=== PATIENT | female | born 1965 | race Caucasian/White ===

== ENCOUNTER 2019-06-01 13:47 | Emergency (ER) | payer SELFPAY ==
[2019-06-01 14:16] VITALS: BP 134/67
--- NOTE | 2019-06-01 15:39 | ER Document Report ---
ED Medical Screen (RME) - General Chief Complaint: Ear Pain Stated Complaint: EAR SWELLING Time Seen by Provider: 06/01/19 15:24 Mode of Arrival: Ambulatory Information source: Patient Notes: Patient was placed on topical drops and oral medication for left otitis externa yesterday. Patient was advised that if she had facial swelling or if her ear started to project outward that she should come for further evaluation. Patient denies any history of diabetes. Patient denies any fever. I have greeted and performed a rapid initial assessment of this patient. A comprehensive ED assessment and evaluation of the patient, analysis of test results and completion of the medical decision making process will be conducted by additional ED providers. - Related Data Allergies/Adverse Reactions: aspirin Allergy (Verified 06/01/19 13:48) codeine Allergy (Verified 06/01/19 13:48) Past Medical History - Social History Frequency of alcohol use: None Drug Abuse: None Physical Exam - Vital signs Vitals: Temp Pulse Resp BP Pulse Ox 98.7 F 62 18 134/67 H 96 06/01/19 14:14 06/01/19 14:14 06/01/19 14:14 06/01/19 14:14 06/01/19 14:14 - General Notes: Left ear swelling, erythema, external auditory canal swollen left TM unable to be visualized. Ear is mildly projecting outward on the left side Course - Vital Signs Vital signs: Temp Pulse Resp BP Pulse Ox 98.7 F 62 18 134/67 H 96 06/01/19 14:14 06/01/19 14:14 06/01/19 14:14 06/01/19 14:14 06/01/19 14:14
[2019-06-01 16:28] LABS: ABSOLUTE EOSINOPHILS # (AUTO) 0.1 10^3/uL (0.0-0.6); ABSOLUTE LYMPHOCYTES (AUTO) 2.6 10^3/uL (0.5-4.7); ABSOLUTE MONOCYTES (AUTO) 1.1 10^3/uL (0.1-1.4); ABSOLUTE NEUT (AUTO) 7.5 10^3/uL (1.7-8.2); BASOPHILS % (AUTO) 0.4 % (0-2); EOSINOPHILS % (AUTO) 0.7 % (0-6); HEMATOCRIT 41.7 % (36.0-47.0); HEMOGLOBIN 14.1 g/dL (12.0-15.5); LYMPHOCYTES % (AUTO) 22.9 % (13-45); MEAN CORPUSCULAR HEMOGLOBIN 30.4 pg (27.0-33.4); MEAN CORPUSCULAR HGB CONC 33.8 g/dL (32.0-36.0); MEAN CORPUSCULAR VOLUME 90 fl (80-97); PLATELET COUNT 317 10^3/uL (150-450); RED BLOOD COUNT 4.64 10^6/uL (3.72-5.28); RED CELL DISTRIBUTION WIDTH 12.9 % (11.5-14.0); TOTAL CELLS COUNTED % (AUTO) 100 %; WHITE BLOOD COUNT 11.3 10^3/uL (4.0-10.5)
--- NOTE | 2019-06-01 16:35 | RADIOLOGY REPORT (SQ) ---
EXAM DESCRIPTION: CT TEMPORAL BONES WO COMPLETED DATE/TIME: 06/01/2019 4:04 pm REASON FOR STUDY: L ear pain/facial swelling, eval malig otitis ext COMPARISON: None. EXAM PARAMETERS: TECHNIQUE: Noncontrasted thin section axial images through the temporal bones and s kull base were obtained and reviewed at bone windows and bone algorithm with coronal and sagittal rec onstructions. All CT scanners at this facility use dose modulation, iterative reconstruction, and/or weight based d osing when appropriate to reduce radiation dose to as low as reasonably achievable (ALARA). [facility]: Dose Right [facility]: [employer] [facility]: Dose Right [facility]: Teradose 4D [facility]: Smart [email or web address] RADIATION DOSE: CT Rad equipment meets quality standard of care and radiation dose reduction techniqu es were employed. CTDIvol: 60.6 mGy. DLP: 606 mGy-cm. mGy. LIMITATIONS: None. FINDINGS: RIGHT SIDE: EXTERNAL AUDITORY CANAL: Widely patent. TYMPANIC MEMBRANE: No masses, thickening or medial retraction. OSSICLES AND MIDDLE EAR CAVITY: Normal ossicles. No middle ear masses or fluid. INNER EAR STRUCTURES: Normal vestibule and cochlea. Normal aqueducts. INTERNAL AUDITORY CANAL: Normal bony canal without narrowing or widening. No calcified or ossified m asses. TEMPOROMANDIBULAR JOINT: Normal. MASTOID AIR CELLS: Clear. LEFT SIDE: EXTERNAL AUDITORY CANAL: The external auditory canal is occluded by soft tissue density. TYMPANIC MEMBRANE: The soft tissue density in the external auditory canal extends to the tympanic mem brane. OSSICLES AND MIDDLE EAR CAVITY: Normal ossicles. No middle ear masses or fluid. INNER EAR STRUCTURES: Normal vestibule and cochlea. Normal aqueducts. INTERNAL AUDITORY CANAL: Normal bony canal without narrowing or widening. No calcified or ossified m asses. TEMPOROMANDIBULAR JOINT: Normal. MASTOID AIR CELLS: Clear. CENTRAL SKULL BASE: Normal foramina. No lytic or blastic lesions. INFERIOR BRAIN: Limited view. No acute findings. LIMITED VIEW OF PARANASAL SINUSES IN THE FIELD OF VIEW: Normal. IMPRESSION: There is complete soft tissue opacification of the external auditory canal to the tympan ic membrane. TECHNICAL DOCUMENTATION: JOB ID: [id number] [facility] [id number]: Final reports with documentation of one or more dose reduction techniques (e.g., Automate d exposure control, adjustment of the mA and/or kV according to patient size, use of iterative recons truction technique) 2010 [employer])- All Rights Reserved Reading location - IP/workstation name: [email or web address]
[2019-06-01 16:39] LABS: ANION GAP 9 (5-19); BLOOD UREA NITROGEN 12 mg/dL (7-20); CALCIUM 9.6 mg/dL (8.4-10.2); CARBON DIOXIDE 27 mmol/L (22-30); CHLORIDE 103 mmol/L (98-107); GLUCOSE 88 mg/dL (75-110); POTASSIUM 4.6 mmol/L (3.6-5.0)
[2019-06-01] MEDS ORDERED: CIPROFLOXACIN 400 MG/D5W RTU 400 MG/200 ML RTUPB IV ONE (17:09)
[2019-06-01] MEDS ORDERED: CIPROFLOXACIN HCL/DEXAMETH OTIC DROP 7.5 ML AS ONE (17:10)
--- NOTE | 2019-06-01 17:27 | ER Document Report ---
ED ENT - General Chief Complaint: Ear Pain Stated Complaint: EAR SWELLING Time Seen by Provider: 06/01/19 15:24 Mode of Arrival: Ambulatory Notes: 54-year-old female presents the emergency department with chief complaint of a worsening left otitis externa diagnosed yesterday at urgent care. Patient states that she was instructed that if her ear starts to swell or pushed forward that she needs to come to the emergency department. Patient was prescribed eardrops and oral antibiotics and has been on Otovel eardrops for 36 hours. Patient denies any fevers or chills but feels a pressure in her left ear. Patient is concerned because she feels like "there is something in my cheek". Denies any vision changes or eye entrapment, denies any dizziness or lightheadedness, denies any neck stiffness, denies any mastoid tenderness. - Related Data Allergies/Adverse Reactions: aspirin Allergy (Verified 06/01/19 13:48) codeine Allergy (Verified 06/01/19 13:48) Past Medical History - General Information source: Patient - Social History Smoking Status: Unknown if Ever Smoked Frequency of alcohol use: None Drug Abuse: None Family History: None Patient has suicidal ideation: No Patient has homicidal ideation: No Review of Systems - Review of Systems Constitutional: See HPI EENT: See HPI Cardiovascular: No symptoms reported Respiratory: No symptoms reported Gastrointestinal: No symptoms reported Genitourinary: No symptoms reported Female Genitourinary: No symptoms reported Musculoskeletal: No symptoms reported Skin: See HPI Hematologic/Lymphatic: No symptoms reported Neurological/Psychological: No symptoms reported Physical Exam - Vital signs Vitals: Temp Pulse Resp BP Pulse Ox 98.7 F 62 18 134/67 H 96 06/01/19 14:14 06/01/19 14:14 06/01/19 14:14 06/01/19 14:14 06/01/19 14:14 - Notes Notes: PHYSICAL EXAMINATION: Reviewed vital signs and charting by RN GENERAL: Alert, interacts well. No acute distress. HEAD: Mild swelling over the zygoma of the left side of the face with some mild erythema, atraumatic. EYES: Pupils equal and round. Extraocular movements intact. ENT: Oral mucosa moist, tongue midline. Left external ear canal swollen shut unable to visualize TM NECK: Full range of motion. Trachea midline. LUNGS: Clear to auscultation bilaterally, no wheezes, rales, or rhonchi. No respiratory distress. HEART: Regular rate and rhythm. No murmur ABDOMEN: soft, non-tender. No distention. Bowel sounds present EXTREMITIES: Moves all 4 extremities spontaneously. No edema, No cyanosis. PSYCH: Normal affect, normal mood. SKIN: Warm, dry, normal turgor. No rashes or lesions noted. Course - Re-evaluation Re-evalutation: 06/01/19 17:24 Patient was prescribed Otovel and amoxicillin and instructed to start taking the amoxicillin tomorrow. I am going to give the patient a single dose of ciprofloxacin 400 mg IV once and change her to Ciprodex drops and change her antibiotics to cover MSSA. CT of the temporal bones did not show anything concerning for mastoiditis or any deep space infection but showed a completely occluded left external auditory canal consistent with otitis externa. I explained all this to patient and plan is for her to follow-up with her primary doctor in the next 48 to 72 hours. She has been given strict return precautions. She is stable for discharge - Vital Signs Vital signs: Temp Pulse Resp BP Pulse Ox 98.7 F 62 18 134/67 H 96 06/01/19 14:14 06/01/19 14:14 06/01/19 14:14 06/01/19 14:14 06/01/19 14:14 - Laboratory Result Diagrams: 06/01/19 16:13 06/01/19 16:13 Laboratory results interpreted by me: 06/01/19 16:13 WBC 11.3 H Discharge - Discharge Clinical Impression: Otitis externa Qualifiers: Otitis externa type: unspecified type Chronicity: acute Laterality: left Qualified Code(s): H60.502 - Unspecified acute noninfective otitis externa, left ear Cellulitis Qualifiers: Site of cellulitis: head Qualified Code(s): L03.811 - Cellulitis of head [any part, except face] Condition: Good Disposition: HOME, SELF-CARE Instructions: Otitis Externa ([facility]), Using Ear Drops with a Wick ([facility]), Use of Ear Drops ([facility]) Additional Instructions: You were seen in the emergency department for worsening otitis externa. We have given you some drops called Ciprodex and you can place 3 drops in your left ear 2 times per day for the next 7 to 10 days. Please continue to use ear alcides. Also, please do not take the amoxicillin as it does not have good coverage for skin infection. I have prescribed you a short course of oral ciprofloxacin that you should take for the next 5 days. Please return to the emergency department if you get eye entrapment, you start to get a high fever after being on antibiotics for a couple of days, the swelling in your face gets worse after a couple of days of being on antibiotics, your throat starts to close up, or you have any other concerning symptoms.
[2019-06-01] MEDS ORDERED: ACETAMINOPHEN 325 MG TABLET PO ONE (17:36)
[2019-06-01] MEDS ORDERED: KETOROLAC TROMETHAMINE INJ/PF 30 MG/1 ML SDV IV ONE (17:36)
== END 2019-06-01 18:21 | disposition home or self-care (01) ==
LOC: ER 13:47
DX: H60.502 Unspecified acute noninfective otitis externa, left ear (principal); L03.811 Cellulitis of head [any part, except face]; Z88.8 Allergy status to other drugs, medicaments and biological substances; Z88.5 Allergy status to narcotic agent
CPT/HCPCS: 36415; 85025; 80048; 70482; J1885; J3490; J0744; 96365; 96375; 99283